=== PATIENT | female | born 1980 | race Caucasian/White ===

== ENCOUNTER 2021-05-22 23:16 | Emergency (ER) | payer BC ==
[2021-05-22] MEDS ORDERED: Ondansetron 4 MG Tab.DIS PO ONE (23:30)
== END 2021-05-23 00:47 | disposition home or self-care (01) ==
LOC: MW.ED 23:16
DX: S09.90XA Unspecified injury of head, initial encounter (principal); R11.2 Nausea with vomiting, unspecified; F10.129 Alcohol abuse with intoxication, unspecified; Z72.0 Tobacco use; W18.09XA Striking against other object with subsequent fall, initial encounter; Y93.41 Activity, dancing
CPT/HCPCS: 70450; 72125; 99284; A9270